=== PATIENT | female | born 1995 | race Caucasian/White ===

== ENCOUNTER 2019-11-15 09:07 | Inpatient (IN) | payer MEDICAID ==
[~2019-11-15] VITALS: Ht 162.6 cm; Wt 89.4 kg
[2019-11-15] VITALS (7 sets, daily range): BP systolic 101–117; BP diastolic 56–72; Ht 162.6 cm; Wt 89.4 kg
--- NOTE | ~2019-11-15 | OP ---
PATIENT NAME: JACQUELINE HAGEN MEDICAL RECORD: [id number] LOCATION:[facility]78 ADMISSION DATE:11/15/19 SURGEON: URVASHI BROOKS DO DATE OF OPERATION: 11/15/2019 PREOPERATIVE DIAGNOSIS: Scheduled repeat . POSTOPERATIVE DIAGNOSIS: Scheduled repeat . PRIMARY SURGEON: Urvashi Brooks DO ANESTHESIA: Mili Marcelino CRNA. PROCEDURE: Repeat low transverse section via Pfannenstiel incision. FINDINGS: Female , weight 3303 grams, Apgars 8 and 9, born at 12:40 p.m. Normal appearing uterus, bilateral fallopian tubes, and bilateral ovaries. SPECIMENS: Placenta and cord blood. ESTIMATED BLOOD LOSS: 800 mL. IV FLUIDS: 1400 cc. URINE OUTPUT: 350 cc clear urine. COMPLICATIONS: None. CONDITION: Stable. PROCEDURE: The risks, benefits, alternatives, and indications of the procedure were discussed with the patient. She voiced understanding of the procedure and signed the consent. She was taken to the OR where spinal anesthesia was administered and found to be adequate. She was placed in the dorsal supine position with a leftward tilt. She was prepped and draped in the normal sterile fashion. A Pfannenstiel skin incision was made with a scalpel and carried down to the underlying layer of the fascia with the Bovie. The fascia was incised at the midline and extended laterally. The inferior aspect of the fascial incision was grasped with Esvin clamps and the rectus muscles dissected off sharply. Attention was then turned to the superior aspect of the fascial incision. The rectus muscle was dissected off in a similar fashion. The rectus muscle was grasped with 2 Allises down to the level peritoneum with a scalpel. The peritoneum was identified and noted to be free of adherent bowel and entered bluntly. The peritoneum was further with gentle traction. The bladder blade was inserted. The uterus is incised in a transverse fashion lower uterine segment. The incision was extended with cephalad caudad traction. The 's head was brought to the incision; however, difficulty was encountered delivering the head and so a Kiwi vacuum was used, no pop offs occurred and the head delivered without difficulty. Mouth and nose were suctioned. Cord was clamped and cut and the infant was handed off to waiting pediatricians. The placenta was manually removed. The uterus was exteriorized and a moist lap was used to assure complete removal of placenta membranes. The hysterotomy was closed with 0 Vicryl in a running locked fashion in a double layer closure with good hemostasis. The posterior cul-de-sac was irrigated with warm sterile water and a moist laparotomy sponge was used for complete removal of blood clots and OPERATIVE REPORT [id number] JACQUELINE HAGEN fluid from the abdominal cavity. The hysterotomy was reinspected and noted to be hemostatic. The uterus, tubes, and ovaries were returned back to the abdominal cavity and a moist laparotomy sponge was used to assure complete removal of blood clots and fluid from the abdomen. The rectus muscle was closed with 2-0 Monocryl in a running fashion with good hemostasis. The fascial incision was closed with 0 Vicryl in a running fashion with good hemostasis. The skin was closed in a subcuticular fashion with 3-0 Monocryl and Dermabond covering. All needle, lap, sponge, and instrument counts were correct times 2. The patient tolerated the procedure well. She was taken to the recovery room in stable condition. TRANSINT:[id number] Voice Confirmation ID: [id number] DOCUMENT ID: [id number] URVASHI BROOKS DO CC: [id number] DICTATION DATE: 11/15/19 1325 MACHINE FILLER SHREDDER: 11/15/19 1705 ADM IN [facility] [address] [place] [address]
[2019-11-15] MEDS ORDERED: PREPLUS CA-FE1 EACH PO (10:03)
[2019-11-15 10:32] LABS: HEMATOCRIT 32.6 % (36.0-48.0); HEMOGLOBIN 10.6 g/dL (12-16); MCH 28.2 pg (26.0-34.0); MCHC 32.5 g/dL (31.0-37.0); MCV 86.7 fL (80.0-100.0); MEAN PLATELET VOLUME 9.7 fL (7.4-10.4); RBC 3.76 10x6/uL (4.00-5.40); RDW 13.2 % (11.5-14.5); WBC 13.9 10x3/uL (4.8-10.8)
--- NOTE | 2019-11-15 12:41 | NUR ---
BABY GIRL BORN AT 1240.
--- NOTE | 2019-11-15 13:55 | NUR ---
FUNDUS IS FIRM, MIDLINE. 2U. NO CLOTS PRESENT. TEENA PAD IN PLACE. WILL CONTINUE TO MONITOR.
--- NOTE | 2019-11-15 14:30 | NUR ---
RECEIVED TO ROOM BY BED FROM RECOVERY. PT IS AWAKE AND ALERT, RATES PAIN AT INCISION AT 4/10. TRANSVERSE BIKINI INCISION COVERED WITH LARGE WHITE ABD DRESSING THAT IS CLEAN AND DRY. FUNDUS FIRM AT U/2 WITH LIGHT LOCHIA NOTED. TEENA PADS CHANGED AND ICE PACK REAPPLIED. IV TO RIGHT WRIST PATENT AND INFUSING PIT 20UNITS IN NORMAL SALINE, SCD BILAT PER ORDER. UGPTA CATH TO BEDSIDE DRAIN WITH 100ML CLEAR URINE NOTED. DENIES NAUSEA AND REQUEST ICE CHIPS AND WATER. SIDE RAILS UP X 2 WITH CALL LIGHT IN REACH.
--- NOTE | 2019-11-15 14:45 | NUR ---
FUNDUS FIRM AT U/2, LIGHT LOCHIA WITHOUT CLOTS NOTED. FAMILY AT BEDSIDE AND BROUGHT TO ROOM BY CRIB PER NURSERY NURSE. CONTINUE TO RATE PAIN AT 4/10. LARGE WATER REQUESTED. CALL LIGHT IN REACH.
--- NOTE | 2019-11-15 15:08 | NUR ---
RATES PAIN AT 4/10 AND STATES UNDERSTANDING THAT PAIN MED IS AVAILABLE IF NEEDED. FUNDUS FIRM AT U/2, SCANT BLEEDING NOTED. TEENA PADS CHANGED PER PT REQUEST. IN CRIB AT BEDSIDE WITH MULTIPLE FAMILY MEMBERS PRESENT.
--- NOTE | 2019-11-15 16:36 | NUR ---
NEW BAG OF PITOCIN/1000ML NS INFUSING PER ORDERS. FUNDUS FIRM AT U/1 WITH SCANT/LIGHT BLEEDING NOTED. TEENA PADS CHANGED PER REQUEST AND NEW ICE PACK TO INCISION. RATES PAIN AT 4/10. 100ML NOTED TO GUPTA COLLECTION CANISTER. FAMILY AT BEDSIDE WITH IN ROOM. CALL LIGHT IN REACH.
[2019-11-15 16:46] LABS: APPEARANCE HAZY (CLEAR); BILIRUBIN NEGATIVE (NEGATIVE); COLOR YELLOW (YELLOW); GLUCOSE NEGATIVE (NEGATIVE); KETONE NEGATIVE (NEGATIVE); NITRITE NEGATIVE (NEGATIVE); PROTEIN NEGATIVE (NEGATIVE); UROBILINOGEN NORMAL (NORMAL)
[2019-11-15 16:47] LABS: RED CELLS - URINE OCC /hpf (0-5); WHITE CELLS - URINE 0-5 /hpf (NEGATIVE)
[2019-11-15 16:48] LABS: BACTERIA MANY /hpf (NEGATIVE); MUCUS <1+ /lpf (NONE SEEN)
--- NOTE | 2019-11-15 17:00 | NUR ---
pt eating clear liquid diet. denies any other needs at this time.
--- NOTE | 2019-11-15 18:35 | NUR ---
Pt rates pain at incision at 4/10 continue to deny need for pain med. fundus firm at u/2 with light lochia noted, no clots with massage. Rafaela care per this RN with warm wet wash cloths, underpad and towels also changed at this time. Degroot cath emptied with total output of 500ml. Pt encouraged to increase fluid intake. Assisted pt with putting on nursing bra per her request, gown changed at this time. Tilted to her left side with pillows to her back for suport. in room and FOB at bedside. Call light in reach.
--- NOTE | 2019-11-15 19:12 | NUR ---
RN TO BEDSIDE, VSS. PT STATES PAIN IS A 2/10 TO ABDOMEN, DRESSING IS CLEAN AND DRY. SCDS IN PLACE. IV TO RIGHT WRIST INFUSING OXYTOCIN AT 125ML/HR. GUPTA CATHETER IN PLACE, DRAINING TO UROMETER, CONCENTRATED YELLOW URINE NOTED. PT STATES ALL HER NEEDS HAVE BEEN MET AT THIS TIME. BED AT LOWEST POSITION, SIDE RAILS UP X2, TELEPHONE AND CALL LIGHT WITHIN REACH. FAMILY MEMBERS AT BEDSIDE.
--- NOTE | 2019-11-15 22:34 | NUR ---
PREPARING TO BF INFANT. PAIN REASSESSMENT COMPLETED, 0/10. DENIES NEEDS AT THIS TIME. SCD'S ON BLE. BED IN LOW POSITION WITH SRUP X2. CALL LIGHT AND PHONE WITHIN REACH. WILL CONTINUE TO MONITOR.
--- NOTE | 2019-11-15 22:58 | NUR ---
RN TO BEDSIDE, ICE WATER PROVIDED TO PT. PT STATES ALL OTHER NEEDS HAVE BEEN MET. BED AT LOWEST POSITION, SIDE RAILS UP X2, TELEPHONE AND CALL LIGHT WITHIN REACH.
--- NOTE | 2019-11-16 00:49 | NUR ---
RN TO BEDSIDE. PT STATES PAIN IS A 5/10 TO HER ABDOMEN. RN TO LOOK AT ORDERS. BED IN LOWEST POSITION, SIDE RAILS UP X2, TELEPHONE AND CALL LIGHT WITHIN REACH.
--- NOTE | 2019-11-16 00:53 | NUR ---
C/O ABD AND INCISIONAL DISCOMFORT 5-04/22. PAIN MEDICATION OPTIONS DISCUSSED. PT REQUEST TO TRANSITION TO PO PAIN MEDS, PERCOCET GIVEN PER ORDER AND PT REQUEST. TORADOL GIVEN PER ORDER TO RT WRIST PIV, NO S/S OF INFILTRATION NOTED. CURRENTLY BF INFANT. DENIES NEEDS. SCD'S ON BLE. BED IN LOW POSITION WITH SRUP X2. CALL LIGHT AND PHONE WITHIN REACH. WILL CONTINUE TO MONITOR.
--- NOTE | 2019-11-16 01:05 | NUR ---
RN TO BEDSIDE, PT STRUGGLING WITH GETTING INFANT LATCHED TO RIGHT BREAST. ASSISTED WITH CROSS CRADLE AND FOOTBALL HOLDS. MOM REPORTS THAT SHE IS IN PAIN AND THAT FOOT BALL POSITION IS MUCH MORE COMFORTABLE, EXTRA PILLOWS PROVIDED FOR SUPPORT. GOOD LATCH, SUCK, AND SWALLOW NOTED FROM INFANT FOLLOWING ASSISTING WITH POSITIONING. CALL LIGHT AND PHONE PLACED WITHIN MOM'S REACH AND INSTRUCTED MOM TO CALL FOR ASSISTANCE PRN, VERBALIZES UNDERSTANDING.
--- NOTE | 2019-11-16 01:25 | NUR ---
RN TO BEDSIDE. GUPTA CATHETER REMOVED, U.O. OF 600ML NOTED. REMOVAL TOLERATED WELL. PT EDUCATED TO CALL OUT WHEN READY TO AMBULATE FOR FIRST TIME. BED IN LOWEST POSITON, SIDE RAILS UP X2, TELEPHONE AND CALL LIGHT WITHIN REACH.
--- NOTE | 2019-11-16 04:30 | NUR ---
INFANT RETURNED TO PT FOR BF AND PLACED IN PT ARMS. ICE WATER PROVIDED. DENIES PAIN AND ADDITIONAL NEEDS AT THIS TIME. SCD'S ON BLE. DENIES NEED FOR ASSISTANCE WITH BF, STATES THAT SHE WILL NOTIFY RN OF NEEDS. SPOUSE RESTING ON COUCH AT BEDSIDE. BED IN LOW POSITION WITH SRUP X2. CALL LIGHT AND PHONE WITHIN REACH. WILL CONTINUE TO MONITOR.
[2019-11-16 04:50] VITALS: BP 110/58
--- NOTE | 2019-11-16 04:50 | NUR ---
VSS. PT FUNDUS FIRM, MIDLINE, AT UMBILICUS. BLEEDING IS SCANT, NO CLOTS NOTED. PT STATES HER PAIN IS 3-4/10 IN HER ABDOMEN. PT STATES CURRENTLY ALL HER NEEDS HAVE BEEN MET. BED IN LOWEST POSITION. SIDE RAILS UPX 2, TELEPHONE AND CALL LIGHT WITHIN REACH.
[2019-11-16 06:08] LABS: RAPID PLASMA REAGIN Non Reactive (Non Reactive)
--- NOTE | 2019-11-16 06:17 | NUR ---
RN TO BEDSIDE TO SEE IF PT WANTS TO AMBULATE, PT IS CURRENTLY , RN TO RETURN IN 30 MINUTES. PT'S BED IN LOWEST POSITION, SIDE RAILS UP X2, TELEPHONE AND CALL LIGHT WITHIN REACH, SCD'S ON.
[2019-11-16 06:26] LABS: BASOPHILS 0.3 % (0-2); EOSINOPHILS 2.2 % (0-7); HEMATOCRIT 31.4 % (36.0-48.0); IMMATURE GRANULOCYTES 1.1 % (0-5); LYMPHOCYTES 19.5 % (15-50); MCH 28.2 pg (26.0-34.0); MCHC 31.8 g/dL (31.0-37.0); MEAN PLATELET VOLUME 9.6 fL (7.4-10.4); MONOCYTES 8.5 % (2-11); NEUTROPHILS 68.4 % (40-80); PLATELET COUNT 277 10x3/uL (130-400); RBC 3.54 10x6/uL (4.00-5.40); RDW 13.4 % (11.5-14.5); WBC 11.9 10x3/uL (4.8-10.8)
[2019-11-16 06:31] LABS: MCV 88.7 fL (80.0-100.0)
--- NOTE | 2019-11-16 06:41 | NUR ---
RN TO PT BEDSIDE. PT AMBULATED TO BATHROOM, TOLERATED AMBULATION WELL. PT ABLE TO VOID, PT VOIDED 700ML IN HAT. PT AMBULATED BACK TO BED WITH RN STANDBY FOR ASSISTANCE. PT TOLERATED AMBULATION BACK TO BED WELL, PT STEADY. BED IN LOWEST POSITION, SIDE RAILS UP X2, TELEPHONE AND CALL LIGHT WITHIN REACH.
[2019-11-16 06:54] VITALS: BP 93/50
--- NOTE | 2019-11-16 06:54 | NUR ---
AM ASSESSMENT COMPLETED, BREAST SOFT AND NONTENDER WITH WELL-FITTING BRA IN PLACE. ABD SOFT MILDLY DISTENDED WITH NORMOACTIVE BOWEL SOUNDS, PT DENIES FLATUS AT THIS TIME. FUNDUS FIRM AT U/1 AND MIDLINE, LOCHIA RUBRA LIGHT AMOUNT, NO CLOTS PASSED, PT SELF-PERFORMS PERICARE AFTER VOIDING. MUÑOZ FREELY, NEGATIVE DANIEL'S SIGN B LE. PEDAL PULSES STRONG/=+2. CAP REFILL LESS THAN 2 SECONDS. DISCUSSED PLAN OF CARE TO INCLUDE TCDB, AMBULATING IN HALLS, SHOWER AFTER DOCTOR ROUNDS AND ABD DRESSING REMOVED. PT STATES UNDERSTANDING, DENIES QUESTIONS AT THIS TIME. COFFEE PROVIDED PER REQUEST. NO OTHER NEEDS VOICED. CALL LIGHT IN EASY REACH, BED IN LOW POSITION, SCDS'S IN PLACE WHILE IN BED, SIDE RAILS UP X2, BED IN LOW POSITION, WILL MONITOR.
--- NOTE | 2019-11-16 07:20 | NUR ---
BREAKFAST TRAY TO PT PER DIETARY STAFF, PT DENIES NEEDS AT THIS TIME. CALL LIGHT IN EASY REACH, SPOUSE AT BS WITH PT. WILL MONITOR.
--- NOTE | 2019-11-16 08:38 | NUR ---
AMBULATORY IN HALLS, SPOUSE AT SIDE. NAD NOTED. COFFEE PROVIDED AND PLACED AT BST PER PT REQUEST. NO OTHER NEEDS VOICED AT THIS TIME. INFANT IN NURSERY.
--- NOTE | 2019-11-16 09:30 | NUR ---
ROUNDS COMPLETED, DENIES NEEDS OR CONCERNS FAMILY AT BS. RESP EVEN AND UNLABORED. CALL LIGHT IN EASY REACH. CONTINUE TO MONITOR.
--- NOTE | 2019-11-16 10:15 | NUR ---
C/O PAIN, PRN MEDS GIVEN PER REQUEST, CUP OF ICE WATER PROVIDED. CALL LIGHT IN EASY REACH.
--- NOTE | 2019-11-16 11:30 | NUR ---
PT REQUEST FOR PRN MOTRIN FOR CONTINUED C/O PAIN RATED 4/-5 OUT OF 10 ON NUMERIC PAIN SCALE, IN ARMS, DENIES OTHER NEEDS AT THIS TIME, CONTINUE TO MONITOR.
[2019-11-16 11:31] VITALS: BP 111/62
--- NOTE | 2019-11-16 12:20 | NUR ---
LUNCH TRAY TO PT, PT IN NAD, AMBULATORY IN ROOM, FAMILY AT BS. WILL MONITOR.
--- NOTE | 2019-11-16 13:05 | NUR ---
ROUNDS COMPLETED, PT TRANSFERRED TO ROOM 1257-A PER REQUEST, AMBULATORY IN HALLS, NAD NOTED. ROOM SET UP/ROOM ORIENTATION/CALL LIGHT/BATHROOM/TV ORIENTATION COMPLETED, ALL PERSONAL BELONGINGS TRANSFERRED PER FAMILY MEMBERS. REVIEWED PLAN OF CARE TO AMBULATE IN HALLS 2 MORE TIMES TODAY. WILL PLAN SHOWER AFTER MD ROUNDS LATER TODAY. CONTINUE TO MONITOR.
--- NOTE | 2019-11-16 14:55 | NUR ---
ROUNDS COMPLETED, DENIES NEEDS/CONCERNS, RESP EVEN AND UNLABORED, WILL MONITOR.
--- NOTE | 2019-11-16 15:25 | NUR ---
ROUNDS COMPLETED, DENIES NEEDS OR CONCERNS, WILL MONITOR. NAD NOTED.
[2019-11-16 16:27] VITALS: BP 110/77
--- NOTE | 2019-11-16 16:27 | NUR ---
PT USING CALL LIGHT TO REQUEST PAIN MED FOR PAIN 6/10 ON NUMERIC PAIN SCALE, FUNDUS FIRM AT U/1 AND MIDLINE, LOCHIA MINIMAL WITH NO CLOTS, DOES REPORT FLATUS NOW. VSS. AFEBRILE, PRN PERCOCET AND MOTRIN GIVEN PER MD ORDERS. DR BROOKS IN TO SEE PT AT THIS TIME. SALINE LOCK PORTS SECURED WITH CLEAR TAPE PER PT REQUEST, FAMILY IN ROOM TO VISIT PT AND . NAD NOTED, CALL LIGHT IN EASY REACH, WILL MONITOR.
--- NOTE | 2019-11-16 18:23 | NUR ---
rounds completed, pt requests saline lock be removed. saline lock removed, catheter tip intact and shown to pt, pressure dressing applied and secured with clear tape. in arms, pt without difficulty, family and friends at pt bs as well, call light in easy reach, nad noted. will monitor.
[2019-11-16 19:54] VITALS: BP 110/59
--- NOTE | 2019-11-16 19:54 | NUR ---
RN TO PT BEDSIDE. VSS. FUNDUS IS FIRM, MIDLINE, 1 BELOW, SCANT BLEEDING NOTED ON PAD, NO CLOTS NOTED. PT STATES HER PAIN 4/10 TO HER ABDOMEN. PT STATES THAT ALL HER NEEDS AT THIS TIME HAVE BEEN MET. BED IN LOWEST POSITON, SIDE RAILS UP X2, TELEPHONE AND CALL LIGHT WITHIN REACH.
--- NOTE | 2019-11-16 20:30 | NUR ---
PT UP TO BATHROOM. PT PERFORMED CHG BATH, DRESSING REMOVED. INCISION IS INTACT.
[2019-11-17 00:35] VITALS: BP 106/76
--- NOTE | 2019-11-17 00:35 | NUR ---
VSS. PT COMPLAINS OF 2/10 PAIN TO ABDOMEN. FUNDUS IS FIRM, MIDLINE, 2 BELOW. BLEEDING IS SCANT, NO CLOTS NOTED ON PAD. SCD'S OFF, PT AMBULATES IN ROOM. PT STATES HER NEEDS ARE MET CURRENTLY. FOB IS AT BEDSIDE. BED IN LOWEST POSITION, SIDE RAILS UP X2, TELEPHONE AND CALL LIGHT WITHIN REACH.
[2019-11-17 04:30] VITALS: BP 113/61
--- NOTE | 2019-11-17 04:30 | NUR ---
RN TO PT BEDSIDE. PT COMPLAINS OF 3/10 PAIN TO ABDOMEN, STATES THAT IT IS TOLERABLE CURRENTLY AND THAT SHE DOES NOT REQUIRE ANY INTERVENTIONS AT THIS TIME. PT'S FUNDUS IS FIRM, MIDLINE, AND 2 BELOW. SCANT BLEEDING NOTED ON PAD, NO CLOTS NOTED. PT STATED THAT SHE NEEDED SOME ICE WATER, ICE WATER PROVIDED TO PT. PT STATES ALL HER OTHER NEEDS HAVE BEEN MET AT THIS TIME. INFANT AT BEDSIDE, PT TO BEGIN AT THIS TIME. BED IN LOWEST POSITION, SIDE RAILS UP X2, CALL LIGHT AND PHONE WITHIN REACH.
--- NOTE | 2019-11-17 07:30 | NUR ---
RINGS LIGHT- REQUESTING PAIN MEDICATION. ENTERED ROOM- SITTING UP IN BED. PT STATES THAT PAIN IS OK UNTIL STARTS TO COUGH. RATES PAIN A 7 ON SCALE OF 0-10. ASSESSMENT DONE. PAIN MED GIVEN. VERBAL RESPONSES APPRO TO QUESTIONS. DENIES ANY PROBLEMS WITH VOIDING AND STATES IS PASSING GAS. REG BREAKFAST SERVED.
[2019-11-17 07:33] VITALS: BP 130/72
--- NOTE | 2019-11-17 08:59 | NUR ---
SITTING IN BED- DENIES NEEDS. STATES THAT PAIN IS BETTER- RATES PAIN A 2 ON SCALE OF 0-10.
--- NOTE | 2019-11-17 10:30 | NUR ---
DR BROOKS HERE TO SEE PT.
[2019-11-17] MEDS ORDERED: PERCOCET 7.5/321 TAB PO (12:06)
--- NOTE | 2019-11-17 12:15 | NUR ---
up and about in room- denies needs.
[2019-11-17 12:16] VITALS: BP 117/58
--- NOTE | 2019-11-17 12:52 | NUR ---
requesting pain med- states not bad but rates pain a 5 on scale of 0-10. states she will take dose that she has been taking. med given. reg diet served.
--- NOTE | 2019-11-17 14:00 | NUR ---
UP AND ABOUT IN ROOM. DENIES NEEDS.
--- NOTE | 2019-11-17 14:45 | NUR ---
DISCHARGE INST VERBAL AND WRITTEN GIVEN. PRESCRIPTION X1 FOR PERCOCET GIVEN. PT MED REC AND DRUG DATA SHEET GIVEN. PFW POST AND POST OP INST GIVEN. SEE ALSO SIGNED DISCHARGE INST SHEET. PT HEALTH SUMMARY GIVEN. PT DENIES QUESTIONS.
== END 2019-11-17 14:45 | disposition home or self-care (01) | DRG 788 ==
LOC: D.LD 09:07 → D.SDCHOLD 09:07 → D.LD 09:35
PROVIDERS: Student in an Organized Health Care Education/Training Program; ADMIT Obstetrics & Gynecology; ATTEND Obstetrics & Gynecology
PROC: 10D00Z1 Extraction of Products of Conception, Low, Open Approach (ICD-10-PCS; principal; 2019-11-15 12:00)
DX: O34.219 Maternal care for unspecified type scar from previous cesarean delivery (principal); Z3A.39 39 weeks gestation of pregnancy; Z37.0 Single live birth; Z87.891 Personal history of nicotine dependence